=== PATIENT | female | born 1965 | race Caucasian/White ===

== ENCOUNTER 2017-12-31 06:11 | Day surgery (SDC) | payer MEDICAID ==
[~2017-12-31] VITALS: Ht 162.6 cm; Wt 96.1 kg
[2017-12-31] VITALS (10 sets, daily range): BP systolic 122–160; BP diastolic 70–96; PULSE 93–100; TEMP 97.7–97.8
[2017-12-31] MEDS ORDERED: TOPROL XL 25MG25 MG PO (06:57)
[2017-12-31] MEDS ORDERED: ASPIRIN E.C. 8181 MG PO (06:58)
[2017-12-31] MEDS ORDERED: LASIX 20MG TABL20 MG PO ×2 (06:58→10:06)
[2017-12-31] MEDS ORDERED: PRINIVIL40 MG PO (06:59)
[2017-12-31 07:00] LABS: INR 0.9 (0.8-3.0); PROTHROMBIN TIME 10.4 SECONDS (9.7-12.8)
[2017-12-31] MEDS ORDERED: K-TAB20 PO (07:00)
[2017-12-31] MEDS ORDERED: LEXAPRO 5MG5 MG PO (07:01)
[2017-12-31] MEDS ORDERED: PROAIR HFA0.09 MG/AC IH (07:01)
[2017-12-31 07:02] LABS: HEMATOCRIT 40.8 % (37.0-47.0); HEMOGLOBIN 13.6 g/dl (12.5-16.0); MEAN CELL VOLUME 91 fl (80.0-100.0); MEAN CORPUSCULAR HEMOGLOBIN 30 pg (27.0-31.0); MEAN CORPUSCULAR HGB CONC 33 g/dl (33.0-37.0); MEAN PLATELET VOLUME 9.2 fl (7.4-10.4); PLATELET COUNT 348 K/mm3 (130-400); REDCELL DISTRIBUTION WIDTH-CV 14.3 % (11.5-14.5)
[2017-12-31] MEDS ORDERED: ELIQUIS 5MG PO ×4 (07:02→10:06)
[2017-12-31 07:06] LABS: CALCIUM 8.6 mg/dL (8.4-10.2); CREATININE, serum 1.19 mg/dL (0.52-1.25); POTASSIUM 4.3 mmol/L (3.4-5.0)
[2017-12-31 08:48] LABS: TRICYCLIC ANTIDEPRESS URINE NEGATIVE
== END 2017-12-31 15:00 | disposition home or self-care (01) ==
LOC: COL.CAR 06:11
PROVIDERS: Internal Medicine Cardiovascular Disease
DX: R06.09 Other forms of dyspnea (principal); E78.5 Hyperlipidemia, unspecified; I11.0 Hypertensive heart disease with heart failure; I50.22 Chronic systolic (congestive) heart failure; F17.210 Nicotine dependence, cigarettes, uncomplicated; Z79.01 Long term (current) use of anticoagulants; Z80.9 Family history of malignant neoplasm, unspecified; Z82.49 Family history of ischemic heart disease and other diseases of the circulatory system; Z88.8 Allergy status to other drugs, medicaments and biological substances
CPT/HCPCS: C1769; C1887; J1644; J2250; J3010; Q9967

== ENCOUNTER → 2021-07-18 | Outpatient (CLI) | payer MEDICAID ==
[~2021-07-18] MED LIST: ASPIRIN E.C. 8181 MG PO; ELIQUIS 5MG PO; K-TAB20 PO; LASIX 20MG TABL20 MG PO; LEXAPRO 10MG10 MG PO; MOBIC15 MG PO; PRINIVIL40 MG PO; PROAIR HFA0.09 MG/AC IH; TOPROL XL100 MG PO; ZETIA 10MG TAB10 MG PO
== END ==
LOC: MC.RAD 15:14
DX: Z12.31 Encounter for screening mammogram for malignant neoplasm of breast (principal)